=== PATIENT | female | born 1990 | race Two or more races ===

== ENCOUNTER 2016-06-06 23:04 | Emergency (ER) | payer SELFPAY ==
[2016-06-07] MEDS ORDERED: ONDANSETRON 4 MG ODT TAB ONE (00:22)
[2016-06-07] MEDS ORDERED: IBUPROFEN 600 MG TABLET ONE (00:22)
== END 2016-06-07 01:02 | disposition home or self-care (01) ==
LOC: ED 23:04
DX: R51 Headache (principal)
CPT/HCPCS: 99283 ×2; A9270 ×2